=== PATIENT | male | born 1960 ===

== ENCOUNTER 2019-05-13 01:37 | Day surgery (SDC) | payer OTHER ==
[2019-05-13] VITALS (7 sets, daily range): BP systolic 126–147; BP diastolic 64–73
[~2019-05-13] VITALS: Ht 182.9 cm; Wt 145.1 kg
[~2019-05-13 01:37] MED LIST: ACLI400A2 IH; ASPI81TA94 PO; DIPH-740 PO; FLUO-177 PO; HYDR-385 PO; IBUP400T13 PO; LOSA50TA80 PO; METO50TA19 PO; MULT1CAP59 PO; PRAV20TA65 PO
[2019-05-13] MEDS ORDERED: PROPOFOL EMUL(*) 10MG/ML 20 ML 40 ML ONE (11:51)
[2019-05-13] MEDS ORDERED: ONDANSETRON 4 MG/2 ML VIAL ONE (11:51)
[2019-05-13] MEDS ORDERED: DEXAMETHASONE SOD 4 MG/ML VIAL ONE (11:51)
[2019-05-13] MEDS ORDERED: LIDOCAINE MPF 1% 5 ML VIAL ONE (11:51)
[2019-05-13] MEDS ORDERED: fentaNYL CITR 250 MCG/5 ML AMP ONE (11:53)
[2019-05-13] MEDS ORDERED: KETAMINE HCL 200 MG/20 ML MDV ONE (11:54)
[2019-05-13] MEDS ORDERED: CELECOXIB 200 MG CAP PO ONE (14:00)
[2019-05-13] MEDS ORDERED: LIDOCAINE/SOD BICARB 8.4% SYR ID ONE (14:00)
[2019-05-13] MEDS ORDERED: ceFAZolin(*) 2GM/D5W 50ML 50 ML IVPB ONE (14:00)
[2019-05-13] MEDS ORDERED: FAMOTIDINE 20 MG TAB PO ONE (14:00)
[2019-05-13] MEDS ORDERED: NORMOSOL R SOLN(*) 1000 ML BAG 1,000 ML IV PRN (14:00)
[2019-05-13] MEDS ORDERED: MIDAZOLAM 2 MG/2 ML VIAL IVP PRN (14:00)
[2019-05-13] MEDS ORDERED: ROPIVACAINE 0.2% 20 ML VIAL ONE (14:20)
[2019-05-13] MEDS ORDERED: LABETALOL HCL 100 MG/20ML VIAL ONE (15:49)
[2019-05-13] MEDS ORDERED: KETOROLAC 30 MG/ML VIAL ONE (15:52)
[2019-05-13] MEDS ORDERED: fentaNYL CITR 100 MCG/2 ML AMP ONE ×2 (16:25→16:48)
[2019-05-13] MEDS ORDERED: HYDR-653 PO (16:35)
[2019-05-13] MEDS ORDERED: APAP/HYDROCODONE 325/5 TAB ONE (17:24)
--- NOTE | 2019-05-14 06:13 | OPERATIVE REPORT 1 ---
EVENT DATE: May 13, 2019 SURGEON: Nasir Black MD ANESTHESIOLOGIST: Vel Patel MD ANESTHESIA: General LMA. [employer] OBJECTS DEVELOPER: Russell Tejeda PA-C PREOPERATIVE DIAGNOSIS Left distal radius comminuted intra-articular fracture with greater than three parts. POSTOPERATIVE DIAGNOSIS Left distal radius comminuted intra-articular fracture with greater than three parts. PROCEDURE PERFORMED Open reduction and internal fixation of a left distal radius fracture which was intra-articular, comminuted, and greater than three parts. ESTIMATED BLOOD LOSS Minimal. DRAINS None. SPECIMENS None. COMPLICATIONS None. TOURNIQUET TIME 63 minutes. IMPLANTS USED [employer] left three-hole standard plate with one highly compressive screw through the radial styloid, four locking pegs in the distal aspect and three 3.5 nonlocking screws in the shaft. FINDINGS The patient had a comminuted distal radius that was fractured. INDICATIONS AND HISTORY This patient is a 58-year-old male who presented to my clinic for evaluation of a left distal radius fracture. He had fallen on it and landed and sustained an intra-articular distal radius fracture with the radial styloid off and shortened and displaced. Therefore, we talked about the implications of this as well as treatment options. He wanted to go ahead with fixation today, 05/13/19. The risks and benefits were discussed with the patient, and informed consent was obtained at the last clinic visit. 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 DESCRIPTION OF PROCEDURE As the patient was brought in to the operating room, he and the procedure were both verified. He was placed supine on the operating table and induced and intubated by Anesthesia. The left upper extremity was then prepped and draped in the usual fashion, and a time-out was observed, verifying the correct patient and procedure. The standard incision was made over the volar aspect of the wrist, over the volar Nicko approach. It was taken through the skin and subcutaneous tissue, and then I moved the flexor carpi radialis over to the radial side. Once I was able to do this, I was able to go through the musculature to go down to the distal radius fracture itself, and I was able to identify the fracture itself and the place. Once I had the fracture identified, I was then able to reduce it using traction as well as a Doddridge elevator in the radial styloid in order to get it back up and reduce the articular surface. Once we had the articular surface reduced, I then put in a radial styloid pin down into the radius itself to hold this in place. This then reduced the articular surface. Unfortunately, there was a comminuted piece on the radial styloid which we could not catch with the plate, but it was left in place secondary to the fact that the radius intra- articular surface was in good position. I then irrigated with copious amounts of saline. I was then able to look at C- arm images, verifying that everything was in good position. We then put on the standard three-hole left-specific plate onto the distal radius. We positioned it in good position and pinned it in place and verified on C-arm images that it was holding everything in place. I then put two distal locking screws in and one proximal shaft screw in order to hold it in place and verified that we had good position. I then reduced the styloid back to where it should be in accordance with the articular surface, and then fired a highly compressive locking screw into the radial styloid to hold this in place. This then reduced the distal radius articular surface excellently, and there were no signs of cappings or problems, but once again, there was a little bit of comminution proximal to this, but it did not matter for the articular surface. I then irrigated again and then put in two more shaft screws and a couple more distal locking screws in order to complete the construct and then complete the short-segment fixation associated with this. I irrigated again, took final pictures, verifying that everything was in good position and the articular surface was reduced well, and then closed the deep muscle tissue with a 3-0 Vicryl in a running fashion. This was then followed by 3-0 Vicryl in the subcutaneous tissue and then a subcuticular running 4-0 Monocryl. The wound was then anesthetized with ropivacaine and then dressed with Steri-Strips, gauze 4x4s, and a soft dressing. The patient was then put in a volar and dorsal splint, and the tourniquet was let down just after 60 minutes, and the patient was awakened, extubated and transferred to PACU in stable condition. CARLEE
== END 2019-05-13 17:30 | disposition home or self-care (01) ==
LOC: OR 01:37
PROVIDERS: ATTEND Orthopaedic Surgery
DX: S52.572A Other intraarticular fracture of lower end of left radius, initial encounter for closed fracture (principal); J44.9 Chronic obstructive pulmonary disease, unspecified; E11.9 Type 2 diabetes mellitus without complications; I10 Essential (primary) hypertension; G47.33 Obstructive sleep apnea (adult) (pediatric)
CPT/HCPCS: 25609; 36416; 76000; 82948; 94667; C1713; J1100; J1885; J2001; J2405; J2704; J2795; J3010; J3490